=== PATIENT | female | born 1995 | race Caucasian/White ===

== ENCOUNTER 2018-04-15 14:35 | Outpatient (CLI) | payer OTHER | END 2018-04-15 14:36 | disposition critical access hospital (66) | LOC: EMS 14:35 | PROVIDERS: ATTEND Surgery | DX: R51 Headache (principal); M54.2 Cervicalgia; R11.0 Nausea; V53.5XXA Driver of pick-up truck or van injured in collision with car, pick-up truck or van in traffic accident, initial encounter; Y92.410 Unspecified street and highway as the place of occurrence of the external cause | CPT/HCPCS: A0425; A0429 ==

== ENCOUNTER 2018-04-15 15:00 | Emergency (ER) | payer OTHER ==
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
[2018-04-15 16:07] VITALS: BP 127/74
== END 2018-04-15 16:07 | disposition home or self-care (01) ==
LOC: ED 15:00
DX: S13.9XXA Sprain of joints and ligaments of unspecified parts of neck, initial encounter (principal); V53.5XXA Driver of pick-up truck or van injured in collision with car, pick-up truck or van in traffic accident, initial encounter; Y92.488 Other paved roadways as the place of occurrence of the external cause; R03.0 Elevated blood-pressure reading, without diagnosis of hypertension
CPT/HCPCS: 72125; 99283